=== PATIENT | male | born 1965 | race African-American/Black ===

== ENCOUNTER 2023-10-13 09:24 | Emergency (ER) | payer OTHER, MEDICAID ==
[~2023-10-13] VITALS: Ht 157.5 cm; Wt 72.6 kg
[2023-10-13 09:43] VITALS: BP 124/88; PULSE 84; RESP 18; TEMP 98; O2SAT 98
[2023-10-13] MEDS ORDERED: CIPR500T4 PO (11:05)
[2023-10-13 13:40] VITALS: BP 151/79; PULSE 68; RESP 16; TEMP 97.7; O2SAT 98
== END 2023-10-13 13:40 ==
LOC: MED 09:24
DX: R30.0 Dysuria (principal); I12.9 Hypertensive chronic kidney disease with stage 1 through stage 4 chronic kidney disease, or unspecified chronic kidney disease; N18.9 Chronic kidney disease, unspecified; Z88.8 Allergy status to other drugs, medicaments and biological substances; Z98.890 Other specified postprocedural states
CPT/HCPCS: 51702; 81002; 99284

== ENCOUNTER 2023-11-09 17:53 | Inpatient (IN) | payer OTHER, MEDICAID ==
[~2023-11-09] VITALS: Ht 175.3 cm; Wt 72.6 kg
[~2023-11-09 17:53] MED LIST: CIPR500T4 PO
[2023-11-09 17:55] VITALS: BP 162/115; PULSE 92; RESP 14; TEMP 97.8; O2SAT 98
[2023-11-09 18:34] VITALS: O2SAT 99
[2023-11-09 18:53] LABS: HEMATOCRIT 33.6 % (36-52); HEMOGLOBIN 11.1 g/dL (12.0-18.0); MEAN CORPUSCULAR HEMOGLOBIN 29 pg (27-31); MEAN CORPUSCULAR HGB CONC 33 g/dL (33-37); MEAN CORPUSCULAR VOLUME 88.1 fL (80-94); PLATELET COUNT (AUTO) 309 K/uL (140-450); RED BLOOD CELL COUNT(AUTO) 3.82 MIL/uL (4.20-6.10); RED CELL DISTRIBUTION WIDTH 15.2 % (11.6-13.7); WHITE BLOOD COUNT (AUTO) 8.2 K/uL (4.8-10.8)
[2023-11-09 19:16] LABS: ANION GAP 12.3 (8-16); POTASSIUM 4.3 mmol/L (3.5-5.1)
[2023-11-09 19:20] LABS: ALANINE AMINOTRANSFERASE 8 U/L (12-78); ALBUMIN 3.3 g/dL (3.4-5.0); ALCOHOL, BLOOD < 3 mg/dL (<10); ALKALINE PHOSPHATASE 107 U/L (50-136); ASPARTATE AMINOTRANSFERASE 6 U/L (15-37); BILIRUBIN,DIRECT 0.1 mg/dL (0.0-0.3); CREATINE KINASE, TOTAL 51 U/L (39-308); TOTAL BILIRUBIN 0.3 mg/dL (0.0-1.0); TOTAL PROTEIN, SERUM 8.2 g/dL (6.4-8.2)
[2023-11-09 19:21] LABS: CREATININE 7.7 mg/dL (0.6-1.3)
[2023-11-09 19:22] LABS: SALICYLATE < 2.8 mg/dL (2.8-20.0)
[2023-11-09 19:25] LABS: EOSINOPHILS % (MANUAL) 15 % (0-4); LYMPHOCYTES % (MANUAL) 34 % (20-46); MONOCYTES % (MANUAL) 5 % (5-12); PLATELET ESTIMATE ADEQUATE
[2023-11-09] MEDS ORDERED: ASPIRIN 81 MG TAB.CHEW PO ONE (19:40)
[2023-11-09 20:16] LABS: AMPHETAMINE, URINE NEGATIVE ng/ml (NEG <=1000); BARBITURATE, URINE NEGATIVE ng/ml (NEG <=200); BENZODIAZEPINE, URINE NEGATIVE ng/mL (NEG <=200); CANNABINOID, URINE NEGATIVE ng/mL (NEG <=50); COCAINE, URINE NEGATIVE ng/mL (NEG <=300)
[2023-11-09 20:17] LABS: OPIATE, URINE NEGATIVE ng/mL (NEG <=2000); PHENCYCLIDINE SCREEN,URINE NEGATIVE ng/mL (NEG <=25)
[2023-11-09 21:21] VITALS: O2SAT 99
[2023-11-09] MEDS ORDERED: INSULIN LISPRO SLIDING SCALE 100 UNITS/ML VIAL SUBQ PRN (22:45)
[2023-11-09] MEDS ORDERED: DEXTROSE 50% 50 ML SYR IVP PRN (22:45)
[2023-11-09] MEDS: NACL 0.9% 1,000 ML IV SCH (23:12)
[2023-11-09 23:16] LABS: FREE T4 (FREE THYROXINE) 0.73 ng/dL (0.76-1.46); MAGNESIUM 2.5 mg/dL (1.8-2.4); PHOSPHORUS 3.9 mg/dL (2.5-4.9); THYROID STIMULATING HORMONE 0.8 uIU/mL (0.34-3.74)
[2023-11-10 01:11] VITALS: O2SAT 99
[2023-11-10 03:20] VITALS: O2SAT 99
[2023-11-10 05:42] VITALS: O2SAT 99
[2023-11-10] MEDS ORDERED: CLON-1170 PO (06:53)
[2023-11-10] MEDS ORDERED: HYDR-1098 PO (06:53)
[2023-11-10] MEDS ORDERED: CALA180L19 TP (06:53)
[2023-11-10] MEDS ORDERED: SODI10PO PO (06:53)
[2023-11-10] MEDS ORDERED: QUET100T44 PO (06:53)
[2023-11-10] MEDS ORDERED: LOSA-272 PO (06:53)
[2023-11-10] MEDS ORDERED: LACT-103 PO (06:53)
[2023-11-10] MEDS ORDERED: CARV25TA PO (06:53)
[2023-11-10] MEDS ORDERED: AMLO10TA88 PO (06:53)
[2023-11-10] MEDS ORDERED: BUS5 PO (06:53)
[2023-11-10] MEDS ORDERED: DIVA500T1 PO (06:53)
[2023-11-10] MEDS ORDERED: LIP80 PO (06:53)
[2023-11-10] MEDS ORDERED: SEVE800T6 PO (06:53)
[2023-11-10] MEDS: BLOOD GLUCOSE MONITORING 1 DEV DEV FS SCH ×4 (08:13→20:58)
[2023-11-10] MEDS: hydrALAZINE 20 MG/ML VIAL IVP PRN ×2 (08:33→10:03)
[2023-11-10] MEDS ORDERED: lisinopriL 20 MG TAB PO SCH (09:00)
[2023-11-10] MEDS ORDERED: QUEtiapine FUMARATE 25 MG TAB PO SCH (09:00)
[2023-11-10] MEDS ORDERED: CRUSHER, PILL MC ONE (09:18)
[2023-11-10] MEDS ORDERED: ACETAMINOPHEN 325 MG TAB PO PRN (09:50)
[2023-11-10] MEDS ORDERED: LIDOCAINE 2% 100 MG/5 ML UJET TP ONE (10:00)
[2023-11-10] MEDS ORDERED: LIDOCAINE 5% 1 EA PATCH TP SCH (10:30)
[2023-11-10] MEDS: NACL 0.9% 1,000 ML IV SCH (11:20)
[2023-11-10 13:00] VITALS: RESP 20; O2SAT 96
[2023-11-10] MEDS ORDERED: ASPIRIN 81 MG TAB.CHEW PO ONE (15:30)
[2023-11-10 20:00] VITALS: BP 127/85; PULSE 89; RESP 16; TEMP 98.9; O2SAT 96
[2023-11-10] MEDS ORDERED: HYDROcodone/APAP 5/325 MG 1 TAB TAB PO PRN (20:35)
[2023-11-10] MEDS: ZOLPIDEM 5 MG TAB PO SCH ×2 (20:57→22:17)
[2023-11-10] MEDS: SIMVASTATIN 20 MG TAB PO SCH ×2 (20:58→22:18)
[2023-11-10] MEDS: METOPROLOL 25 MG TAB PO SCH ×2 (20:58→22:18)
[2023-11-11 19:38] LABS: HEMOGLOBIN A1C 5.8 % (4.8-5.6)
== END 2023-11-10 22:28 | disposition left against medical advice (07) | DRG 280 ==
LOC: MED 17:53 → MTU 22:34
PROVIDERS: ADMIT Student in an Organized Health Care Education/Training Program; ATTEND Student in an Organized Health Care Education/Training Program
PROC: 5A1D70Z Performance of Urinary Filtration, Intermittent, Less than 6 Hours Per Day (ICD-10-PCS; principal; 2023-11-10)
DX: I21.4 Non-ST elevation (NSTEMI) myocardial infarction (principal); N18.6 End stage renal disease; I12.0 Hypertensive chronic kidney disease with stage 5 chronic kidney disease or end stage renal disease; R45.851 Suicidal ideations; F20.9 Schizophrenia, unspecified; E11.22 Type 2 diabetes mellitus with diabetic chronic kidney disease; Z53.29 Procedure and treatment not carried out because of patient's decision for other reasons; D63.8 Anemia in other chronic diseases classified elsewhere; Z20.822 Contact with and (suspected) exposure to COVID-19; Z88.8 Allergy status to other drugs, medicaments and biological substances; Z79.899 Other long term (current) drug therapy
CPT/HCPCS: 36415; 71045; 80048; 80076; 80305; 82550; 83036; 83735; 84100; 84436; 84439; 84443; 84479; 84484; 85025; 93005; 96374; 99285; G0480; G0482; J0360; J1815

== ENCOUNTER 2023-11-20 21:20 | Emergency (ER) | payer OTHER, MEDICAID ==
[~2023-11-20] VITALS: Ht 172.7 cm; Wt 77.1 kg
[2023-11-20 21:20] VITALS: BP 130/84; PULSE 89; RESP 17; TEMP 97.8; O2SAT 98
[~2023-11-20 21:20] MED LIST changes: +AMLO10TA88 PO; +BUS5 PO; +CALA180L19 TP; +CARV25TA PO; +CLON-1170 PO; +DIVA500T1 PO; +HYDR-1098 PO; +LACT-103 PO; +LIP80 PO; +LOSA-272 PO; +QUET100T44 PO; +SEVE800T6 PO; +SODI10PO PO
[2023-11-20 22:26] LABS: BASOPHILS % (AUTO) 0.6 % (0.0-2.0); EOSINOPHILS # (AUTO) 1.3 K/uL (0-0.4); EOSINOPHILS % (AUTO) 16.9 % (0.0-4.0); HEMATOCRIT 30.3 % (36-52); HEMOGLOBIN 10.3 g/dL (12.0-18.0); LYMPHOCYTES # (AUTO) 1.8 K/uL (2.0-11.5); LYMPHOCYTES % (AUTO) 24.3 % (20.5-51.1); MEAN CORPUSCULAR HEMOGLOBIN 30 pg (27-31); MEAN CORPUSCULAR HGB CONC 34 g/dL (33-37); MEAN CORPUSCULAR VOLUME 87.7 fL (80-94); MONOCYTES # (AUTO) 0.9 K/uL (0.8-1.0); MONOCYTES % (AUTO) 12.1 % (1.7-9.3); NEUTROPHILS # (AUTO) 3.5 K/uL (1.8-7.7); NEUTROPHILS % (AUTO) 46.1 % (42.2-75.2); PLATELET COUNT (AUTO) 411 K/uL (140-450); RED BLOOD CELL COUNT(AUTO) 3.46 MIL/uL (4.20-6.10); RED CELL DISTRIBUTION WIDTH 14.3 % (11.6-13.7); WHITE BLOOD COUNT (AUTO) 7.6 K/uL (4.8-10.8)
[2023-11-20 22:48] LABS: ALANINE AMINOTRANSFERASE 23 U/L (12-78); ALBUMIN 3.1 g/dL (3.4-5.0); ALCOHOL, BLOOD < 3 mg/dL (<10); ALKALINE PHOSPHATASE 77 U/L (50-136); ANION GAP 10.4 (8-16); ASPARTATE AMINOTRANSFERASE 13 U/L (15-37); CALCIUM 9.5 mg/dL (8.5-10.1); CARBON DIOXIDE 35.9 mmol/L (21-32); CHLORIDE 94 mmol/L (98-107); GFR ARICAN-AMERICAN 10 mL/min (>90); GFR NON ARICAN-AMERICAN 9 mL/min (>90); GLUCOSE 105 mg/dL (74-106); POTASSIUM 4.3 mmol/L (3.5-5.1); SODIUM SERUM 136 mmol/L (136-145); TOTAL BILIRUBIN 0.3 mg/dL (0.0-1.0); TOTAL PROTEIN, SERUM 8.3 g/dL (6.4-8.2); UREA NITROGEN, BLOOD 34 mg/dL (7-18)
[2023-11-20 22:50] LABS: ACETAMINOPHEN < 0.5 ug/ml (10-30); CREATININE 7.1 mg/dL (0.6-1.3); SALICYLATE < 2.8 mg/dL (2.8-20.0)
[2023-11-21 00:34] VITALS: O2SAT 97
[2023-11-21 02:31] VITALS: O2SAT 97
[2023-11-21 03:21] VITALS: O2SAT 97
[2023-11-21] MEDS ORDERED: ALBU3SOL83 IH (04:14)
[2023-11-21] MEDS ORDERED: LOSA-272 PO (04:14)
[2023-11-21] MEDS ORDERED: SEVE0.8P PO (04:14)
[2023-11-21] MEDS ORDERED: CLON-1170 PO (04:14)
[2023-11-21] MEDS ORDERED: HEPA500056 (04:14)
[2023-11-21] MEDS ORDERED: SODI10PO PO (04:14)
[2023-11-21] MEDS ORDERED: MULT-1469 PO (04:14)
[2023-11-21] MEDS ORDERED: D50SYR IV (04:14)
[2023-11-21] MEDS ORDERED: CARV25TA PO (04:14)
[2023-11-21] MEDS ORDERED: GLUC1VIA (04:14)
[2023-11-21] MEDS ORDERED: BEN50 PO (04:14)
[2023-11-21] MEDS ORDERED: NUTR887L4 PO (04:14)
[2023-11-21] MEDS ORDERED: LIP80 PO (04:14)
[2023-11-21] MEDS ORDERED: QUET100T PO (04:14)
[2023-11-21] MEDS ORDERED: AMLO10TA PO (04:14)
[2023-11-21] MEDS ORDERED: DOCU-299 PO (04:14)
[2023-11-21] MEDS ORDERED: ACET-2619 PO (04:14)
[2023-11-21] MEDS ORDERED: APR10 PO (04:14)
[2023-11-21] MEDS ORDERED: DIVA500T1 PO (04:14)
[2023-11-21] MEDS ORDERED: BUDE0.25 NEB (04:14)
[2023-11-21] MEDS ORDERED: BUS5 PO (04:14)
[2023-11-21] MEDS ORDERED: QUEtiapine FUMARATE 100 MG TAB PO SCH (05:45)
[2023-11-21] MEDS ORDERED: ACETAMINOPHEN 325 MG TAB PO ONE (08:40)
[2023-11-21] MEDS ORDERED: oxyCODONE 10 MG TABER PO ONE (13:30)
[2023-11-21 14:51] VITALS: BP 143/84; PULSE 81; RESP 18; TEMP 98.1; O2SAT 100
== END 2023-11-21 14:51 ==
LOC: MED 21:20
DX: R45.851 Suicidal ideations (principal); R44.0 Auditory hallucinations; R44.1 Visual hallucinations; E11.22 Type 2 diabetes mellitus with diabetic chronic kidney disease; I12.0 Hypertensive chronic kidney disease with stage 5 chronic kidney disease or end stage renal disease; N18.6 End stage renal disease; Z99.2 Dependence on renal dialysis; J45.909 Unspecified asthma, uncomplicated; Z79.899 Other long term (current) drug therapy; Z79.2 Long term (current) use of antibiotics; Z88.8 Allergy status to other drugs, medicaments and biological substances
CPT/HCPCS: 36415; 80053; 85025; 99285; G0480; G0482

== ENCOUNTER 2023-12-09 18:49 | Inpatient (IN) | payer OTHER, MEDICAID ==
[~2023-12-09] VITALS: Ht 175.3 cm; Wt 75.3 kg
[~2023-12-09 18:49] MED LIST changes: +ACET-2619 PO; +ALBU3SOL83 IH; +AMLO10TA PO; +APR10 PO; +BEN50 PO; +BUDE0.25 NEB; +D50SYR IV; +DOCU-299 PO; +GLUC1VIA; +HEPA500056; +MULT-1469 PO; +NUTR887L4 PO; +QUET100T PO; +SEVE0.8P PO
[2023-12-09 18:55] VITALS: BP 167/114; PULSE 88; RESP 17; TEMP 98.9; O2SAT 97
[2023-12-09 19:24] LABS: BASOPHILS % (AUTO) 0.2 % (0.0-2.0); EOSINOPHILS # (AUTO) 0.9 K/uL (0-0.4); EOSINOPHILS % (AUTO) 8.4 % (0.0-4.0); HEMATOCRIT 31.7 % (36-52); HEMOGLOBIN 10.5 g/dL (12.0-18.0); LYMPHOCYTES # (AUTO) 2.4 K/uL (2.0-11.5); LYMPHOCYTES % (AUTO) 23.9 % (20.5-51.1); MEAN CORPUSCULAR HEMOGLOBIN 29 pg (27-31); MEAN CORPUSCULAR HGB CONC 33 g/dL (33-37); MEAN CORPUSCULAR VOLUME 88.7 fL (80-94); MONOCYTES # (AUTO) 0.8 K/uL (0.8-1.0); MONOCYTES % (AUTO) 7.5 % (1.7-9.3); NEUTROPHILS # (AUTO) 6.1 K/uL (1.8-7.7); PLATELET COUNT (AUTO) 527 K/uL (140-450); RED BLOOD CELL COUNT(AUTO) 3.58 MIL/uL (4.20-6.10); RED CELL DISTRIBUTION WIDTH 15.5 % (11.6-13.7); WHITE BLOOD COUNT (AUTO) 10.1 K/uL (4.8-10.8)
[2023-12-09 19:37] LABS: CARBON DIOXIDE 30.4 mmol/L (21-32); POTASSIUM 4.4 mmol/L (3.5-5.1)
[2023-12-09 19:44] LABS: ALANINE AMINOTRANSFERASE 11 U/L (12-78); ALCOHOL, BLOOD < 3 mg/dL (<10); ALKALINE PHOSPHATASE 88 U/L (50-136); ASPARTATE AMINOTRANSFERASE 10 U/L (15-37); BILIRUBIN,DIRECT 0.1 mg/dL (0.0-0.3); TOTAL BILIRUBIN 0.2 mg/dL (0.0-1.0); TOTAL PROTEIN, SERUM 8.2 g/dL (6.4-8.2)
[2023-12-09 19:46] LABS: CREATININE 9.1 mg/dL (0.6-1.3)
[2023-12-09 19:48] LABS: SALICYLATE < 2.8 mg/dL (2.8-20.0)
[2023-12-09 19:57] LABS: ACETAMINOPHEN < 0.5 ug/ml (10-30)
[2023-12-09] MEDS ORDERED: ONDANSETRON 4 MG/2 ML VIAL IM/IVP PRN (20:50)
[2023-12-09] MEDS ORDERED: DOCUSATE SODIUM 100 MG GELCAP PO PRN (20:50)
[2023-12-09] MEDS ORDERED: ACETAMINOPHEN 325 MG TAB PO PRN (20:50)
[2023-12-09] MEDS ORDERED: ZOLPIDEM 5 MG TAB PO PRN (20:50)
[2023-12-09] MEDS ORDERED: POTASSIUM CHLORIDE 10 MEQ TABER PO PRN (20:50)
[2023-12-09] MEDS ORDERED: guaiFENesin DM 200/20 MG-10 ML 10 ML UDC PO PRN (20:50)
[2023-12-09] MEDS: amLODIPine 5 MG TAB PO ONE (20:52)
[2023-12-09] MEDS ORDERED: hydrALAZINE 20 MG/ML VIAL IVP PRN (21:05)
[2023-12-09 21:47] LABS: APPEARANCE,URINE CLEAR (CLEAR); BILIRUBIN,URINE NEGATIVE (NEGATIVE); BLOOD, URINE 2+ (NEGATIVE); COLOR,URINE YELLOW (YELLOW); LEUKOCYTE ESTERASE ,URINE 3+ (NEGATIVE); NITRITE, URINE NEGATIVE (NEGATIVE); PROTEIN,URINE 3+ (NEGATIVE); UGLUCOSE NEGATIVE (NEGATIVE); UROBILINOGEN,URINE 0.2 EU/dL (0.2 - 1)
[2023-12-09] MEDS: HYDROcodone/APAP 7.5/325 MG 1 TAB PO PRN (22:00)
[2023-12-09 22:01] LABS: BACTERIA,URINE >30 (MANY) /HPF (None Seen); MUCUS,URINE None Seen /LPF (None Seen); RBC,URINE TOO NUMEROUS TO COUN /HPF (0-5); SQUAMOUS EPITHELIAL CELL,UR None Seen /LPF (0-3 (FEW)); TRICHOMONAS,URINE None Seen /HPF (None Seen); WBC,URINE TOO MANY TO COUNT /HPF (0-5); YEAST,URINE None Seen /HPF (None Seen)
[2023-12-10] MEDS ORDERED: cefTRIAXone 1,000 MG VIAL ONE ×2 (00:16→21:13)
[2023-12-10 07:11] LABS: BASOPHILS % (AUTO) 0.4 % (0.0-2.0); EOSINOPHILS # (AUTO) 0.7 K/uL (0-0.4); EOSINOPHILS % (AUTO) 6.5 % (0.0-4.0); HEMATOCRIT 29.8 % (36-52); HEMOGLOBIN 9.7 g/dL (12.0-18.0); LYMPHOCYTES # (AUTO) 2.7 K/uL (2.0-11.5); LYMPHOCYTES % (AUTO) 24.8 % (20.5-51.1); MEAN CORPUSCULAR HEMOGLOBIN 29 pg (27-31); MEAN CORPUSCULAR HGB CONC 33 g/dL (33-37); MEAN CORPUSCULAR VOLUME 89.6 fL (80-94); MONOCYTES # (AUTO) 0.7 K/uL (0.8-1.0); MONOCYTES % (AUTO) 6.5 % (1.7-9.3); NEUTROPHILS # (AUTO) 6.6 K/uL (1.8-7.7); NEUTROPHILS % (AUTO) 61.8 % (42.2-75.2); PLATELET COUNT (AUTO) 477 K/uL (140-450); RED BLOOD CELL COUNT(AUTO) 3.32 MIL/uL (4.20-6.10); RED CELL DISTRIBUTION WIDTH 16.1 % (11.6-13.7); WHITE BLOOD COUNT (AUTO) 10.7 K/uL (4.8-10.8)
[2023-12-10 07:30] VITALS: O2SAT 100
[2023-12-10 07:38] LABS: ALBUMIN 2.7 g/dL (3.4-5.0); ANION GAP 17.1 (8-16); CALCIUM 8.8 mg/dL (8.5-10.1); CARBON DIOXIDE 26.3 mmol/L (21-32); POTASSIUM 4.4 mmol/L (3.5-5.1); TOTAL BILIRUBIN 0.2 mg/dL (0.0-1.0); TOTAL PROTEIN, SERUM 7.2 g/dL (6.4-8.2)
[2023-12-10 07:41] LABS: CREATININE 9.5 mg/dL (0.6-1.3)
[2023-12-10] MEDS: PANTOPRAZOLE 40 MG TABEC PO SCH (09:00)
[2023-12-10] MEDS: busPIRone 5 MG TAB PO SCH (10:05)
[2023-12-10] MEDS: SEVELAMER CARBONATE 800 MG TAB PO SCH (13:52)
[2023-12-10] MEDS: BACITRACIN OINT 500 UNITS/GM PKT TP ONE (17:00)
[2023-12-10] MEDS ORDERED: BACITRACIN OINT 500 UNITS/GM PKT TP ONE (17:02)
[2023-12-10 20:28] LABS: AMPHETAMINE, URINE NEGATIVE ng/ml (NEG <=1000); BARBITURATE, URINE NEGATIVE ng/ml (NEG <=200); BENZODIAZEPINE, URINE NEGATIVE ng/mL (NEG <=200); CANNABINOID, URINE NEGATIVE ng/mL (NEG <=50); COCAINE, URINE NEGATIVE ng/mL (NEG <=300); OPIATE, URINE NEGATIVE ng/mL (NEG <=2000); PHENCYCLIDINE SCREEN,URINE NEGATIVE ng/mL (NEG <=25)
[2023-12-10] MEDS: QUEtiapine FUMARATE 100 MG TAB PO SCH (21:17)
[2023-12-10] MEDS: carvediloL 12.5 MG TAB PO SCH (21:18)
[2023-12-10] MEDS: CLONIDINE HYDROCHLORIDE 0.1 MG TAB PO SCH (21:18)
[2023-12-10] MEDS: DIVALPROEX 250 MG TABEC PO SCH (21:24)
[2023-12-10] MEDS ORDERED: DIVALPROEX SPRINKLES 125 MG CAPDR ONE ×2 (21:27)
[2023-12-11 07:13] LABS: BASOPHILS # (AUTO) 0.1 K/uL (0.00-0.22); BASOPHILS % (AUTO) 0.6 % (0.0-2.0); EOSINOPHILS # (AUTO) 0.6 K/uL (0-0.4); EOSINOPHILS % (AUTO) 6.1 % (0.0-4.0); HEMATOCRIT 28.4 % (36-52); HEMOGLOBIN 9.6 g/dL (12.0-18.0); LYMPHOCYTES # (AUTO) 2.5 K/uL (2.0-11.5); LYMPHOCYTES % (AUTO) 26.2 % (20.5-51.1); MEAN CORPUSCULAR HEMOGLOBIN 30 pg (27-31); MEAN CORPUSCULAR HGB CONC 34 g/dL (33-37); MEAN CORPUSCULAR VOLUME 88.8 fL (80-94); MONOCYTES # (AUTO) 0.8 K/uL (0.8-1.0); MONOCYTES % (AUTO) 8.3 % (1.7-9.3); NEUTROPHILS # (AUTO) 5.6 K/uL (1.8-7.7); NEUTROPHILS % (AUTO) 58.8 % (42.2-75.2); PLATELET COUNT (AUTO) 467 K/uL (140-450); RED CELL DISTRIBUTION WIDTH 15.8 % (11.6-13.7); WHITE BLOOD COUNT (AUTO) 9.4 K/uL (4.8-10.8)
[2023-12-11 07:28] VITALS: O2SAT 98
[2023-12-11 07:29] LABS: ALBUMIN 2.5 g/dL (3.4-5.0); ANION GAP 12.8 (8-16); CALCIUM 8.6 mg/dL (8.5-10.1); CARBON DIOXIDE 29.4 mmol/L (21-32); POTASSIUM 4.2 mmol/L (3.5-5.1); TOTAL BILIRUBIN 0.2 mg/dL (0.0-1.0); TOTAL PROTEIN, SERUM 6.8 g/dL (6.4-8.2)
[2023-12-11] MEDS: amLODIPine 5 MG TAB PO SCH (09:38)
[2023-12-11] MEDS: VIT-B COMP/VIT-C/FOLIC ACID 1 TAB PO SCH (09:40)
[2023-12-11 11:49] VITALS: O2SAT 97
[2023-12-11] MEDS: SEVELAMER CARBONATE 800 MG TAB PO SCH (17:10)
[2023-12-11 19:04] VITALS: O2SAT 97
[2023-12-11 19:48] VITALS: O2SAT 97
[2023-12-11] MEDS ORDERED: cefTRIAXone 1,000 MG VIAL ONE (22:11)
[2023-12-11] MEDS: ATORVASTATIN 80 MG TAB PO SCH (22:15)
[2023-12-11 22:27] VITALS: O2SAT 97
[2023-12-12 02:49] VITALS: O2SAT 97
[2023-12-12 04:20] VITALS: O2SAT 97
[2023-12-12 07:32] LABS: BASOPHILS # (AUTO) 0.1 K/uL (0.00-0.22); BASOPHILS % (AUTO) 0.8 % (0.0-2.0); EOSINOPHILS # (AUTO) 0.7 K/uL (0-0.4); EOSINOPHILS % (AUTO) 8.2 % (0.0-4.0); HEMATOCRIT 28.1 % (36-52); HEMOGLOBIN 9.2 g/dL (12.0-18.0); LYMPHOCYTES # (AUTO) 2.3 K/uL (2.0-11.5); LYMPHOCYTES % (AUTO) 27.2 % (20.5-51.1); MEAN CORPUSCULAR HEMOGLOBIN 30 pg (27-31); MEAN CORPUSCULAR HGB CONC 33 g/dL (33-37); MEAN CORPUSCULAR VOLUME 89.8 fL (80-94); MONOCYTES # (AUTO) 0.8 K/uL (0.8-1.0); MONOCYTES % (AUTO) 9.7 % (1.7-9.3); NEUTROPHILS # (AUTO) 4.5 K/uL (1.8-7.7); NEUTROPHILS % (AUTO) 54.1 % (42.2-75.2); PLATELET COUNT (AUTO) 455 K/uL (140-450); RED BLOOD CELL COUNT(AUTO) 3.13 MIL/uL (4.20-6.10); RED CELL DISTRIBUTION WIDTH 16.4 % (11.6-13.7); WHITE BLOOD COUNT (AUTO) 8.4 K/uL (4.8-10.8)
[2023-12-12 08:22] LABS: ALBUMIN 2.6 g/dL (3.4-5.0); ANION GAP 16.7 (8-16); CALCIUM 8.4 mg/dL (8.5-10.1); CARBON DIOXIDE 27.3 mmol/L (21-32); TOTAL BILIRUBIN 0.2 mg/dL (0.0-1.0); TOTAL PROTEIN, SERUM 6.9 g/dL (6.4-8.2)
[2023-12-12 08:41] LABS: CREATININE 8.8 mg/dL (0.6-1.3)
[2023-12-12] MEDS ORDERED: DIVA250E1 PO (12:07)
[2023-12-12] MEDS ORDERED: CIPR500T4 PO (12:07)
[2023-12-12] MEDS ORDERED: QUET100T44 PO (12:07)
[2023-12-12] MEDS ORDERED: CLON0.1T16 PO (12:07)
[2023-12-12] MEDS ORDERED: LOSA-272 PO (12:07)
[2023-12-12] MEDS ORDERED: BUS5 PO (12:07)
[2023-12-12] MEDS ORDERED: HYDR-1098 PO (12:07)
[2023-12-12] MEDS ORDERED: CARV25TA PO (12:07)
[2023-12-12] MEDS ORDERED: RIS1 PO (12:08)
[2023-12-12 12:27] VITALS: BP 154/93; PULSE 77; RESP 17; TEMP 98
[2023-12-12 12:31] VITALS: BP 154/93; PULSE 77; RESP 17; TEMP 98
[2023-12-12 12:34] VITALS: BP 147/79; PULSE 81; RESP 18; TEMP 98.1; O2SAT 98
== END 2023-12-12 13:45 | disposition home or self-care (01) | DRG 291 ==
LOC: MED 18:49 → MMU 20:51 → MTU 20:51 → MMU 12-11 23:21
PROVIDERS: ADMIT Student in an Organized Health Care Education/Training Program; ATTEND Student in an Organized Health Care Education/Training Program
PROC: 5A1D70Z Performance of Urinary Filtration, Intermittent, Less than 6 Hours Per Day (ICD-10-PCS; principal; 2023-12-10)
DX: I13.2 Hypertensive heart and chronic kidney disease with heart failure and with stage 5 chronic kidney disease, or end stage renal disease (principal); N18.6 End stage renal disease; E44.0 Moderate protein-calorie malnutrition; N39.0 Urinary tract infection, site not specified; I50.32 Chronic diastolic (congestive) heart failure; Z20.822 Contact with and (suspected) exposure to COVID-19; R79.89 Other specified abnormal findings of blood chemistry; E11.9 Type 2 diabetes mellitus without complications; F20.9 Schizophrenia, unspecified; E11.22 Type 2 diabetes mellitus with diabetic chronic kidney disease; Z99.2 Dependence on renal dialysis; Z79.899 Other long term (current) drug therapy; Z68.24 Body mass index [BMI] 24.0-24.9, adult
CPT/HCPCS: 36415; 71045; 80048; 80053; 80076; 80305; 81001; 82948; 84484; 85025; 87040; 87081; 87086; 93005; 99285; G0480; G0482; J0696; J7060; Q0092